=== PATIENT | female | born 1980 | race Caucasian/White ===

== ENCOUNTER → 2019-11-11 | Outpatient (CLI) | payer OTHER ==
[~2019-11-11] MED LIST: DOCU100C37 PO; FERR325T18 PO; IBUP-1780 PO; OXYC-471 PO; PNV91TAB3 PO
== END ==
LOC: LABNPT 06:20
PROVIDERS: ATTEND Family Medicine
DX: R51 Headache (principal); R09.81 Nasal congestion; Z20.828 Contact with and (suspected) exposure to other viral communicable diseases
CPT/HCPCS: 87635

== ENCOUNTER → 2021-03-14 | Outpatient (CLI) | payer OTHER ==
[~2021-03-14] MED LIST changes: -OXYC-471 PO; +OXYC1TAB11 PO
== END ==
LOC: LABNPT 08:00
PROVIDERS: ATTEND Family Medicine
DX: U07.1 COVID-19 (principal)
CPT/HCPCS: 87635